=== PATIENT | female | born 1960 | race African-American/Black ===

== ENCOUNTER 2016-08-16 09:52 | Emergency (ER) | payer OTHER ==
[~2016-08-16] VITALS: Ht 160 cm; Wt 81.5 kg
[~2016-08-16 09:52] MED LIST: ADV250 IH; CARI350 PO; HYDR-3965 PO; METO50 PO; PREG25 PO; TELM20 PO; ZOLP5 PO
[2016-08-16 10:28] LABS: BASOPHILS % (AUTO) 0.3 % (0.0-2.0); EOSINOPHILS % (AUTO) 2.2 % (1.0-6.0); HEMATOCRIT 45.2 % (36-46); HEMOGLOBIN 14.3 g/dL (12.0-16.0); LYMPHOCYTES # (AUTO) 3.3 K/uL (1.0-4.8); LYMPHOCYTES % (AUTO) 38.7 % (22.0-44.0); MEAN CORPUSCULAR HEMOGLOBIN 24.8 pg (26.0-34.0); MEAN CORPUSCULAR HGB CONC 31.6 G/dL (31.0-37.0); MEAN CORPUSCULAR VOLUME 78 fL (80-100); MONOCYTES # (AUTO) 0.6 K/uL (0.1-1.0); NEUTROPHILS # (AUTO) 4.5 K/uL (1.8-7.7); NEUTROPHILS % (AUTO) 51.8 % (40.0-70.0); PLATELET COUNT (AUTO) 260 K/uL (150-450); RED BLOOD CELL COUNT(AUTO) 5.76 MIL/uL (4.00-5.20); RED CELL DISTRIBUTION WIDTH 15.1 % (11.5-14.5); WHITE BLOOD COUNT (AUTO) 8.6 K/uL (4.5-11.0)
[2016-08-16 10:31] LABS: ADD UA MICROSCOPIC NO; APPEARANCE,URINE CLEAR (CLEAR); GLUCOSE, URINE (UA) NEGATIVE (NEGATIVE); KETONES,URINE NEGATIVE (NEGATIVE); LEUKOCYTE ESTERASE ,URINE NEGATIVE (NEGATIVE); OCCULT BLOOD,URINE NEGATIVE (NEGATIVE); PROTEIN,URINE NEGATIVE (NEGATIVE)
[2016-08-16] MEDS ORDERED: MAGNESIUM CITRATE 300 ML ORAL SOLUTION PO ONE (11:45)
[2016-08-16 12:06] VITALS: BP 124/77
== END 2016-08-16 12:07 | disposition home or self-care (01) ==
LOC: EMS 09:55
DX: R10.9 Unspecified abdominal pain (principal); F17.210 Nicotine dependence, cigarettes, uncomplicated; F41.9 Anxiety disorder, unspecified; M19.90 Unspecified osteoarthritis, unspecified site; I10 Essential (primary) hypertension; K21.9 Gastro-esophageal reflux disease without esophagitis; J45.909 Unspecified asthma, uncomplicated
CPT/HCPCS: 99284

== ENCOUNTER 2017-03-13 23:11 | Emergency (ER) | payer OTHER ==
[~2017-03-13] VITALS: Ht 160 cm; Wt 86.4 kg
[2017-03-14] MEDS ORDERED: ALBUTEROL SULFATE 5 MG/ML 20 ML NEB SOLN [BULK] NEB ONE (02:30)
[2017-03-14] MEDS ORDERED: IPRATROPIUM BROMIDE 0.5 MG/2.5 ML NEB SOLUTION NEB ONE (02:30)
[2017-03-14] MEDS ORDERED: 0.9% SODIUM CHLORIDE 5 ML NEB SOLUTION NEB ONE (02:35)
[2017-03-14 03:51] VITALS: BP 146/72
== END 2017-03-14 03:54 | disposition home or self-care (01) ==
LOC: EMS 23:12
DX: J45.901 Unspecified asthma with (acute) exacerbation (principal); J11.1 Influenza due to unidentified influenza virus with other respiratory manifestations; R11.0 Nausea; K21.9 Gastro-esophageal reflux disease without esophagitis; I10 Essential (primary) hypertension; F17.210 Nicotine dependence, cigarettes, uncomplicated
CPT/HCPCS: 94644; 99285

== ENCOUNTER 2017-08-30 14:05 | Emergency (ER) | payer OTHER, MEDICAID ==
[~2017-08-30] VITALS: Ht 160 cm; Wt 90.5 kg
[~2017-08-30 14:05] MED LIST changes: -PREG25 PO; -ZOLP5 PO
[2017-08-30 15:33] VITALS: BP 138/88
== END 2017-08-30 15:33 | disposition home or self-care (01) ==
LOC: EMS 14:07
DX: M54.5 Low back pain (principal); G89.29 Other chronic pain; I10 Essential (primary) hypertension; K21.9 Gastro-esophageal reflux disease without esophagitis; J45.909 Unspecified asthma, uncomplicated; F17.210 Nicotine dependence, cigarettes, uncomplicated
CPT/HCPCS: 99283; 99406

== ENCOUNTER 2017-10-19 17:45 | Emergency (ER) | payer OTHER, MEDICAID ==
[~2017-10-19] VITALS: Ht 160 cm; Wt 90.9 kg
[2017-10-19 18:27] LABS: BASOPHILS % (AUTO) 0.6 % (0.0-2.0); EOSINOPHILS % (AUTO) 0.6 % (1.0-6.0); HEMATOCRIT 43.4 % (36-46); HEMOGLOBIN 14.2 g/dL (12.0-16.0); LYMPHOCYTES # (AUTO) 2.6 K/uL (1.0-4.8); LYMPHOCYTES % (AUTO) 32.4 % (22.0-44.0); MEAN CORPUSCULAR HEMOGLOBIN 27.2 pg (26.0-34.0); MEAN CORPUSCULAR HGB CONC 32.8 G/dL (31.0-37.0); MEAN CORPUSCULAR VOLUME 83 fL (80-100); MONOCYTES # (AUTO) 0.5 K/uL (0.1-1.0); NEUTROPHILS # (AUTO) 4.8 K/uL (1.8-7.7); NEUTROPHILS % (AUTO) 60.4 % (40.0-70.0); PLATELET COUNT (AUTO) 251 K/uL (150-450); RED BLOOD CELL COUNT(AUTO) 5.23 MIL/uL (4.00-5.20); RED CELL DISTRIBUTION WIDTH 15.4 % (11.5-14.5)
[2017-10-19 18:45] LABS: ANION GAP 9 mmol/L (8-16); CALCIUM, TOTAL 9.5 mg/dL (8.8-10.5); CARBON DIOXIDE 27 mmol/L (22-29); CHLORIDE 105 mmol/L (98-107); CREATININE 0.78 mg/dL (0.60-1.30); GLOMERULAR FILTR. RATE CALC > 60 mL/min (>60); GLUCOSE,RANDOM 114 mg/dL (70-110); POTASSIUM 3.9 mmol/L (3.5-5.1); SODIUM SERUM 141 mmol/L (136-145); UREA NITROGEN, BLOOD 18 mg/dL (7-18)
[2017-10-19 18:48] LABS: ALANINE AMINOTRANSFERASE 18 U/L (12-78); ALBUMIN 4.1 g/dL (3.4-5.0); ALKALINE PHOSPHATASE 75 U/L (46-116); ASPARTATE AMINOTRANSFERASE 11 U/L (15-37); BILIRUBIN,TOTAL 0.5 mg/dL (0.1-1.0); TOTAL PROTEIN, SERUM 7.7 g/dL (6.4-8.2)
[2017-10-19] MEDS ORDERED: ASPIRIN 81 MG CHEWABLE TABLET PO ONE (21:00)
[2017-10-19] MEDS ORDERED: ACETAMINOPHEN 500 MG TABLET PO ONE (21:00)
[2017-10-19] MEDS ORDERED: KETOROLAC TROMETHAMINE 60 MG/2 ML VIAL IM ONE (21:00)
[2017-10-19 22:01] VITALS: BP 139/81
== END 2017-10-19 22:24 | disposition home or self-care (01) ==
LOC: EMS 17:48
DX: R07.89 Other chest pain (principal); I10 Essential (primary) hypertension; J45.909 Unspecified asthma, uncomplicated; K21.9 Gastro-esophageal reflux disease without esophagitis; F41.9 Anxiety disorder, unspecified; F17.210 Nicotine dependence, cigarettes, uncomplicated
CPT/HCPCS: 93005; 99285; 99406; J1885

== ENCOUNTER 2018-05-22 09:31 | Emergency (ER) | payer OTHER ==
[~2018-05-22] VITALS: Ht 162.6 cm; Wt 86.4 kg
[~2018-05-22 09:31] MED LIST changes: -CARI350 PO
[2018-05-22] MEDS ORDERED: IPRAHFA IH (09:44)
[2018-05-22] MEDS ORDERED: FLUCONAZOLE 150 MG TABLET PO ONE (11:00)
[2018-05-22] MEDS ORDERED: PredniSONE 20 MG TABLET PO ONE (11:00)
[2018-05-22] MEDS ORDERED: IPRATROPIUM BROMIDE 0.5 MG/2.5 ML NEB SOLUTION NEB ONE (11:00)
[2018-05-22] MEDS ORDERED: ALBUTEROL SULFATE 2.5 MG/0.5 ML NEB SOLUTION NEB ONE (11:00)
[2018-05-22] MEDS ORDERED: ALBUTEROL SULFATE HFA 90 MCG/PUFF 8 GM INHALER IH ONE (12:15)
[2018-05-22 13:09] VITALS: BP 136/74
== END 2018-05-22 13:18 | disposition home or self-care (01) ==
LOC: EMS 09:33
DX: J18.0 Bronchopneumonia, unspecified organism (principal); I10 Essential (primary) hypertension; J44.9 Chronic obstructive pulmonary disease, unspecified; K21.9 Gastro-esophageal reflux disease without esophagitis; F41.9 Anxiety disorder, unspecified; F17.210 Nicotine dependence, cigarettes, uncomplicated; Z79.899 Other long term (current) drug therapy
CPT/HCPCS: 71045; 94640; 99284; 99406; J7512; J3535

== ENCOUNTER 2018-06-01 08:03 | Emergency (ER) | payer OTHER ==
[~2018-06-01] VITALS: Ht 162.6 cm; Wt 89.1 kg
[~2018-06-01 08:03] MED LIST changes: +IPRAHFA IH
[2018-06-01] MEDS ORDERED: AMLO-511 PO (08:09)
[2018-06-01 09:43] LABS: ANION GAP 7 mmol/L (8-16); BASOPHILS % (AUTO) 0.8 % (0.0-2.0); CALCIUM, TOTAL 9.6 mg/dL (8.8-10.5); CARBON DIOXIDE 30 mmol/L (22-29); CHLORIDE 103 mmol/L (98-107); CREATININE 0.74 mg/dL (0.60-1.30); EOSINOPHILS % (AUTO) 2.3 % (1.0-6.0); GLOMERULAR FILTR. RATE CALC > 60 mL/min (>60); GLUCOSE,RANDOM 106 mg/dL (70-110); HEMATOCRIT 45.1 % (36-46); HEMOGLOBIN 14.4 g/dL (12.0-16.0); LYMPHOCYTES # (AUTO) 2.3 K/uL (1.0-4.8); LYMPHOCYTES % (AUTO) 31.9 % (22.0-44.0); MEAN CORPUSCULAR VOLUME 81 fL (80-100); MONOCYTES # (AUTO) 0.6 K/uL (0.1-1.0); MONOCYTES % (AUTO) 7.6 % (2.0-9.0); NEUTROPHILS # (AUTO) 4.2 K/uL (1.8-7.7); NEUTROPHILS % (AUTO) 57.4 % (40.0-70.0); PLATELET COUNT (AUTO) 252 K/uL (150-450); POTASSIUM 4.2 mmol/L (3.5-5.1); RED BLOOD CELL COUNT(AUTO) 5.54 MIL/uL (4.00-5.20); RED CELL DISTRIBUTION WIDTH 14.5 % (11.5-14.5); SODIUM SERUM 140 mmol/L (136-145); UREA NITROGEN, BLOOD 11 mg/dL (7-18)
[2018-06-01 09:51] LABS: ALANINE AMINOTRANSFERASE 22 U/L (12-78); ALBUMIN 3.7 g/dL (3.4-5.0); ALKALINE PHOSPHATASE 70 U/L (46-116); ASPARTATE AMINOTRANSFERASE 14 U/L (15-37); BILIRUBIN,TOTAL 0.4 mg/dL (0.1-1.0); TOTAL PROTEIN, SERUM 7.2 g/dL (6.4-8.2)
[2018-06-01 10:44] VITALS: BP 147/77
== END 2018-06-01 11:32 | disposition home or self-care (01) ==
LOC: EMS 08:03
DX: J40 Bronchitis, not specified as acute or chronic (principal); K21.9 Gastro-esophageal reflux disease without esophagitis; I10 Essential (primary) hypertension; M19.90 Unspecified osteoarthritis, unspecified site; F41.9 Anxiety disorder, unspecified; F17.210 Nicotine dependence, cigarettes, uncomplicated; Z98.51 Tubal ligation status; Z90.710 Acquired absence of both cervix and uterus; Z90.12 Acquired absence of left breast and nipple
CPT/HCPCS: 93005

== ENCOUNTER 2020-09-17 08:22 | Emergency (ER) | payer OTHER ==
[~2020-09-17] VITALS: Ht 160 cm; Wt 93.2 kg
[~2020-09-17 08:22] MED LIST changes: -ADV250 IH; +AMLO-257 PO; +FLUT1DIS6 IH; -HYDR-3965 PO; +HYDR-4723 PO
[2020-09-17 08:44] VITALS: BP 141/73
== END 2020-09-17 09:53 | disposition home or self-care (01) ==
LOC: EMS 08:32
DX: H61.23 Impacted cerumen, bilateral (principal); Z90.710 Acquired absence of both cervix and uterus; Z98.51 Tubal ligation status; J45.909 Unspecified asthma, uncomplicated; I10 Essential (primary) hypertension; Z79.899 Other long term (current) drug therapy
CPT/HCPCS: 99283

== ENCOUNTER 2021-06-29 11:57 | Emergency (ER) | payer OTHER ==
[~2021-06-29] VITALS: Ht 160 cm; Wt 95.5 kg
[2021-06-29 12:18] LABS: BASOPHILS % (AUTO) 0.9 % (0.0-2.0); EOSINOPHILS % (AUTO) 1.2 % (1.0-6.0); HEMOGLOBIN 13.5 g/dL (12.0-16.0); LYMPHOCYTES # (AUTO) 3.3 K/uL (1.0-4.8); MEAN CORPUSCULAR HEMOGLOBIN 26.6 pg (26.0-34.0); MEAN CORPUSCULAR HGB CONC 32.1 G/dL (31.0-37.0); MEAN CORPUSCULAR VOLUME 83 fL (80-100); MONOCYTES # (AUTO) 0.6 K/uL (0.1-1.0); MONOCYTES % (AUTO) 7.3 % (2.0-9.0); NEUTROPHILS # (AUTO) 3.8 K/uL (1.8-7.7); NEUTROPHILS % (AUTO) 48.6 % (40.0-70.0); PLATELET COUNT (AUTO) 250 K/uL (150-450); RED BLOOD CELL COUNT(AUTO) 5.06 MIL/uL (4.00-5.20); RED CELL DISTRIBUTION WIDTH 15.2 % (11.5-14.5)
[2021-06-29 12:23] LABS: ANION GAP 5 mmol/L (8-16); CALCIUM, TOTAL 9.3 mg/dL (8.8-10.5); CARBON DIOXIDE 34 mmol/L (22-29); CHLORIDE 104 mmol/L (98-107); CREATININE 0.84 mg/dL (0.60-1.30); GLOMERULAR FILTR. RATE CALC > 60 mL/min (>60); GLUCOSE,RANDOM 119 mg/dL (70-110); POTASSIUM 4.4 mmol/L (3.5-5.1); SODIUM SERUM 143 mmol/L (136-145); UREA NITROGEN, BLOOD 17 mg/dL (7-18)
[2021-06-29 13:03] LABS: B-TYPE NATRIURETIC PEPTIDE 5 pg/mL (0-100)
[2021-06-29 13:34] VITALS: BP 126/54
[2021-06-29] MEDS ORDERED: AZIT250T9 PO (14:13)
[2021-06-29] MEDS ORDERED: BENZ-70 PO (14:13)
[2021-06-29] MEDS ORDERED: IBUP-2070 PO (14:13)
[2021-06-29] MEDS ORDERED: BENZONATATE 100 MG CAPSULE PO ONE (14:15)
[2021-06-29] MEDS ORDERED: IBUPROFEN 600 MG TABLET PO ONE (14:15)
== END 2021-06-29 14:40 | disposition home or self-care (01) ==
LOC: EMS 11:57
DX: J18.9 Pneumonia, unspecified organism (principal); F41.9 Anxiety disorder, unspecified; J45.909 Unspecified asthma, uncomplicated; J44.9 Chronic obstructive pulmonary disease, unspecified; K21.9 Gastro-esophageal reflux disease without esophagitis; I10 Essential (primary) hypertension; F17.210 Nicotine dependence, cigarettes, uncomplicated; Z90.710 Acquired absence of both cervix and uterus
CPT/HCPCS: 71045; 80048; 83880; 84484; 85025; 93005; 99285; 36415-L1; 36415-TC

== ENCOUNTER 2022-03-25 09:46 | Emergency (ER) | payer OTHER ==
[~2022-03-25] VITALS: Ht 170.2 cm; Wt 90.9 kg
[~2022-03-25 09:46] MED LIST changes: +AZIT250T9 PO; +BENZ-70 PO; +IBUP-1492 PO
[2022-03-25] MEDS ORDERED: MONT-35 PO (10:00)
[2022-03-25] MEDS ORDERED: TELMISARTAN PO (10:00)
[2022-03-25] MEDS ORDERED: METO50 PO (10:00)
[2022-03-25] MEDS ORDERED: GABA-1181 PO (10:00)
[2022-03-25] MEDS ORDERED: AMLO10TA55 PO (10:00)
[2022-03-25 13:11] VITALS: BP 133/72
[2022-03-25 13:12] LABS: BASOPHILS % (AUTO) 0.7 % (0.0-2.0); EOSINOPHILS % (AUTO) 1.4 % (1.0-6.0); HEMATOCRIT 43.8 % (36-46); HEMOGLOBIN 13.8 g/dL (12.0-16.0); LYMPHOCYTES # (AUTO) 3.3 K/uL (1.0-4.8); LYMPHOCYTES % (AUTO) 42.9 % (22.0-44.0); MEAN CORPUSCULAR HEMOGLOBIN 26.1 pg (26.0-34.0); MEAN CORPUSCULAR HGB CONC 31.4 G/dL (31.0-37.0); MEAN CORPUSCULAR VOLUME 83 fL (80-100); MONOCYTES # (AUTO) 0.5 K/uL (0.1-1.0); MONOCYTES % (AUTO) 6.2 % (2.0-9.0); NEUTROPHILS # (AUTO) 3.7 K/uL (1.8-7.7); NEUTROPHILS % (AUTO) 48.8 % (40.0-70.0); PLATELET COUNT (AUTO) 256 K/uL (150-450); RED BLOOD CELL COUNT(AUTO) 5.27 MIL/uL (4.00-5.20); RED CELL DISTRIBUTION WIDTH 14.5 % (11.5-14.5)
[2022-03-25 13:23] LABS: PROTHROMBIN TIME 11.1 SEC (9.4-11.6)
[2022-03-25 13:25] LABS: ANION GAP 7 mmol/L (8-16); CALCIUM, TOTAL 9.3 mg/dL (8.8-10.5); CARBON DIOXIDE 32 mmol/L (22-29); CHLORIDE 104 mmol/L (98-107); CREATININE 0.73 mg/dL (0.60-1.30); GLUCOSE,RANDOM 118 mg/dL (70-110); SODIUM SERUM 143 mmol/L (136-145); UREA NITROGEN, BLOOD 10 mg/dL (7-18)
[2022-03-25 13:26] LABS: GLOMERULAR FILTR. RATE CALC > 60 mL/min (>60)
[2022-03-25 13:31] LABS: ALANINE AMINOTRANSFERASE 19 U/L (12-78); ALKALINE PHOSPHATASE 73 U/L (46-116); ASPARTATE AMINOTRANSFERASE 17 U/L (15-37); BILIRUBIN,TOTAL 0.5 mg/dL (0.1-1.0); TOTAL PROTEIN, SERUM 7.6 g/dL (6.4-8.2)
[2022-03-25 13:34] LABS: B-TYPE NATRIURETIC PEPTIDE 10 pg/mL (0-100)
[2022-03-25] MEDS ORDERED: OMEP40CA21 PO (14:25)
[2022-03-25] MEDS ORDERED: IPRA3AMP24 NEB (14:25)
[2022-03-25] MEDS ORDERED: METO-391 PO (14:25)
[2022-03-25] MEDS ORDERED: FLUT1DIS26 IH (14:25)
[2022-03-25] MEDS ORDERED: IPRA4AER IH (14:25)
[2022-03-25] MEDS ORDERED: TELM20TA8 PO (14:25)
[2022-03-25] MEDS ORDERED: FLUT16H NASAL (14:25)
[2022-03-25] MEDS ORDERED: ALBU8HFA IH (14:25)
[2022-03-25] MEDS ORDERED: METH-812 PO (14:28)
[2022-03-25] MEDS ORDERED: DIPH-1080 PO (14:28)
[2022-03-25] MEDS ORDERED: IBUP-2070 PO (14:28)
[2022-03-25] MEDS ORDERED: ACET325T51 PO (14:28)
[2022-03-25] MEDS ORDERED: CYCL-448 PO (14:29)
[2022-03-25] MEDS ORDERED: KETOROLAC TROMETHAMINE 30 MG/ML VIAL IM ONE (14:30)
[2022-03-25] MEDS ORDERED: HYDROCODONE/ACETAMINOPHEN 5-325 MG TABLET PO ONE (14:30)
== END 2022-03-25 14:43 | disposition home or self-care (01) ==
LOC: EMS 09:48
DX: S16.1XXA Strain of muscle, fascia and tendon at neck level, initial encounter (principal); M25.552 Pain in left hip; M25.512 Pain in left shoulder; F41.9 Anxiety disorder, unspecified; J45.909 Unspecified asthma, uncomplicated; K59.00 Constipation, unspecified; J44.9 Chronic obstructive pulmonary disease, unspecified; I10 Essential (primary) hypertension; M19.90 Unspecified osteoarthritis, unspecified site; F17.210 Nicotine dependence, cigarettes, uncomplicated; Z90.710 Acquired absence of both cervix and uterus; Z98.51 Tubal ligation status; Z90.11 Acquired absence of right breast and nipple; Z98.890 Other specified postprocedural states; X58.XXXA Exposure to other specified factors, initial encounter; Y93.89 Activity, other specified; Y92.89 Other specified places as the place of occurrence of the external cause; Y99.8 Other external cause status
CPT/HCPCS: 99285; 71045; 80053; 83880; 84484; 85025; 85610; 85730; 36415; 72040; 73503; 93005; 96372; J1885

== ENCOUNTER 2023-05-18 01:45 | Inpatient (IN) | payer OTHER ==
[2023-05-18] VITALS (11 sets, daily range): BP systolic 129–157; BP diastolic 61–82; PULSE 71–101; RESP 17–24; TEMP 97.5–98.9; O2SAT 96–99
[~2023-05-18] VITALS: Ht 160 cm; Wt 92.7 kg
[~2023-05-18 01:45] MED LIST changes: +ACET325T51 PO; +ALBU18HF12 IH; -AMLO-257 PO; +AMLO10TA55 PO; -AZIT250T9 PO; -BENZ-70 PO; +CYCL-448 PO; +DIPH-1237 PO; +FLUT16H NASAL; +FLUT1DIS26 IH; -FLUT1DIS6 IH; +GABA-1181 PO; -HYDR-4723 PO; -IBUP-1492 PO; +IBUP-2070 PO; +IPRA3AMP24 NEB; +IPRA4AER IH; -IPRAHFA IH; +METH-812 PO; +METO-391 PO; -METO50 PO; +MONT-35 PO; +OMEP40CA21 PO; -TELM20 PO; +TELM20TA8 PO
[2023-05-18 02:32] LABS: COVID AG,FIA SOURCE NASAL SWAB
[2023-05-18] MEDS: ALBUTEROL SULFATE 2.5 MG/0.5 ML NEB SOLUTION NEB ONE ×2 (02:34→02:49)
[2023-05-18] MEDS: IPRATROPIUM BROMIDE 0.5 MG/2.5 ML NEB SOLUTION NEB ONE ×2 (02:34→02:55)
[2023-05-18] MEDS: ALBUTEROL SULFATE 2.5 MG/0.5 ML 5 ML NEB SOLUTION NEB ONE (02:54)
[2023-05-18 02:59] LABS: INFLUENZA TYPE A NEGATIVE FOR TYPE A (NEGATIVE); INFLUENZA TYPE B NEGATIVE FOR TYPE B (NEGATIVE); SARS-COV2 (COVID) ANTIGEN,FIA Negative (Negative)
[2023-05-18] MEDS: MethylPREDNISolone SOD SUCC 125 MG/2 ML VIAL IVP ONE (03:13)
[2023-05-18 03:33] LABS: BASOPHILS % (AUTO) 0.8 % (0.0-2.0); EOSINOPHILS % (AUTO) 1.5 % (1.0-6.0); HEMOGLOBIN 12.9 g/dL (12.0-16.0); LYMPHOCYTES # (AUTO) 2.4 K/uL (1.0-4.8); LYMPHOCYTES % (AUTO) 23.7 % (22.0-44.0); MEAN CORPUSCULAR HEMOGLOBIN 26.8 pg (26.0-34.0); MEAN CORPUSCULAR HGB CONC 32.3 G/dL (31.0-37.0); MEAN CORPUSCULAR VOLUME 83 fL (80-100); MONOCYTES % (AUTO) 9.5 % (2.0-9.0); NEUTROPHILS # (AUTO) 6.5 K/uL (1.8-7.7); NEUTROPHILS % (AUTO) 64.5 % (40.0-70.0); PLATELET COUNT (AUTO) 245 K/uL (150-450); RED BLOOD CELL COUNT(AUTO) 4.82 MIL/uL (4.00-5.20); RED CELL DISTRIBUTION WIDTH 15.2 % (11.5-14.5); WHITE BLOOD COUNT (AUTO) 10.1 K/uL (4.5-11.0)
[2023-05-18 03:40] LABS: ANION GAP 6 mmol/L (8-16); CALCIUM, TOTAL 9.4 mg/dL (8.8-10.5); CARBON DIOXIDE 30 mmol/L (22-29); CHLORIDE 101 mmol/L (98-107); CREATININE 0.66 mg/dL (0.60-1.30); GLOMERULAR FILTR. RATE CALC > 60 mL/min (>60); GLUCOSE,RANDOM 118 mg/dL (70-110); POTASSIUM 5.9 mmol/L (3.5-5.1); SODIUM SERUM 137 mmol/L (136-145); UREA NITROGEN, BLOOD 17 mg/dL (7-18)
[2023-05-18 03:45] LABS: TROPONIN I-HIGH SENSITIVITY 11 ng/L (<51)
[2023-05-18 03:49] LABS: B-TYPE NATRIURETIC PEPTIDE < 5 pg/mL (0-100)
[2023-05-18 04:04] LABS: ALANINE AMINOTRANSFERASE 20 U/L (12-78); ALBUMIN 3.5 g/dL (3.4-5.0); ALKALINE PHOSPHATASE 76 U/L (46-116); ASPARTATE AMINOTRANSFERASE 34 U/L (15-37); BILIRUBIN,TOTAL 0.3 mg/dL (0.1-1.0); CREATINE KINASE, TOTAL ONLY 124 U/L (26-192); TOTAL PROTEIN, SERUM 7.7 g/dL (6.4-8.2)
[2023-05-18] MEDS ORDERED: ONDANSETRON HCL 4 MG/2 ML VIAL IVP PRN (04:15)
[2023-05-18] MEDS: AZITHROMYCIN 500 MG/NS 250 ML IV SCH (04:31)
[2023-05-18] MEDS: SODIUM CHLORIDE 0.9% 1,000 ML IV SCH (04:33)
[2023-05-18] MEDS: KETOROLAC TROMETHAMINE 30 MG/ML VIAL IVP ONE (04:35)
[2023-05-18] MEDS: ACETAMINOPHEN 325 MG TABLET PO PRN (06:17)
[2023-05-18] MEDS ORDERED: INSULIN REGULAR, HUMAN 100 UNITS/ML SQ SCH (07:30)
[2023-05-18] MEDS: DEXTROSE 50%-WATER 25 GM/50 ML SYRINGE IVP ONE (07:30)
[2023-05-18] MEDS ORDERED: CYCLOBENZAPRINE HCL 10 MG TABLET PO PRN (07:30)
[2023-05-18] MEDS: METHOCARBAMOL 750 MG TABLET PO SCH (08:31)
[2023-05-18] MEDS: DOCUSATE SODIUM 100 MG CAPSULE PO SCH (08:32)
[2023-05-18] MEDS: AmLODIPine BESYLATE 10 MG TABLET PO SCH (08:32)
[2023-05-18] MEDS: GABAPENTIN 300 MG CAPSULE PO SCH ×2 (08:32→16:51)
[2023-05-18] MEDS: METOPROLOL SUCCINATE 50 MG ER TABLET PO SCH (08:32)
[2023-05-18] MEDS: HEPARIN SODIUM,PORCINE 5,000 UNITS/ML VIAL SQ SCH (08:32)
[2023-05-18] MEDS: CefTRIAXone 1 GM/DEXTROSE 50 ML IV SCH (08:36)
[2023-05-18 10:01] LABS: ANION GAP 12 mmol/L (8-16); CALCIUM, TOTAL 9.6 mg/dL (8.8-10.5); CARBON DIOXIDE 26 mmol/L (22-29); CHLORIDE 101 mmol/L (98-107); CREATININE 0.94 mg/dL (0.60-1.30); GLOMERULAR FILTR. RATE CALC > 60 mL/min (>60); GLUCOSE,RANDOM 255 mg/dL (70-110); SODIUM SERUM 139 mmol/L (136-145); UREA NITROGEN, BLOOD 17 mg/dL (7-18)
[2023-05-18] MEDS: OxyCODONE HCL/ACETAMINOPHEN 10-325 MG TABLET PO PRN (12:58)
[2023-05-18] MEDS: LORazepam 1 MG TABLET PO ONE (14:17)
[2023-05-18] MEDS ORDERED: SODIUM CHLORIDE 0.9% 100 ML ONE (15:01)
[2023-05-18] MEDS ORDERED: IOHEXOL 350 MG/ML 100 ML VIAL ONE (15:01)
[2023-05-18] MEDS ORDERED: SODIUM CHLORIDE 3% 15 ML NEB SOLUTION NEB ONE (19:54)
[2023-05-18] MEDS: ALBUTEROL SULFATE 2.5 MG/0.5 ML NEB SOLUTION NEB PRN (20:14)
[2023-05-18] MEDS: IPRATROPIUM BROMIDE 0.5 MG/2.5 ML NEB SOLUTION NEB PRN (20:14)
[2023-05-18] MEDS: DiphenhydrAMINE HCL 25 MG CAPSULE PO PRN (21:19)
[2023-05-19] VITALS (12 sets, daily range): BP systolic 126–155; BP diastolic 54–83; PULSE 71–105; RESP 18–24; TEMP 97.8–98.2; O2SAT 96–99
[2023-05-19] MEDS: MethylPREDNISolone SOD SUCC 125 MG/2 ML VIAL IVP SCH ×2 (04:19→17:55)
[2023-05-19] MEDS: IPRATROPIUM BROMIDE 0.5 MG/2.5 ML NEB SOLUTION NEB PRN (12:56)
[2023-05-19] MEDS: ALBUTEROL SULFATE 2.5 MG/0.5 ML NEB SOLUTION NEB PRN (12:57)
[2023-05-19] MEDS: FLUTICASONE PROPIONATE 50 MCG/SPRAY 16 GM NASAL SPRAY NASAL SCH (15:02)
[2023-05-19] MEDS: BENZONATATE 100 MG CAPSULE PO SCH (15:02)
[2023-05-19] MEDS: GuaiFENesin/D-METHORPHAN [SUGAR-FREE] 200-20MG/10 ML SYRUP UDCUP PO PRN (15:03)
[2023-05-19] MEDS: ALBUTEROL SULFATE 2.5 MG/0.5 ML NEB SOLUTION NEB SCH (15:46)
[2023-05-19] MEDS: IPRATROPIUM BROMIDE 0.5 MG/2.5 ML NEB SOLUTION NEB SCH (15:46)
[2023-05-19] MEDS: MONTELUKAST SODIUM 10 MG TABLET PO SCH (20:11)
[2023-05-19] MEDS: GuaiFENesin SR 600 MG ER TABLET PO SCH (20:11)
[2023-05-20] VITALS (16 sets, daily range): BP systolic 144–165; BP diastolic 67–77; PULSE 68–99; RESP 19–20; TEMP 97.6–98.2; O2SAT 92–100
[2023-05-20] MEDS: TELMISARTAN 20 MG TABLET PO SCH (08:06)
[2023-05-21] VITALS (13 sets, daily range): BP systolic 147–163; BP diastolic 78–105; PULSE 72–86; RESP 16–20; TEMP 98.1–98.5; O2SAT 94–99
[2023-05-21 02:36] LABS: GLUCOMETER DEV NAME(LOC) 5N.2C; GLUCOSE,POINT OF CARE 277 MG/DL (70-110)
[2023-05-21] MEDS ORDERED: DEXTROSE 50%-WATER 25 GM/50 ML SYRINGE IVP PRN (12:30)
[2023-05-21] MEDS: INSULIN LISPRO 100 UNITS/ML SQ PRN (17:14)
[2023-05-21 17:46] LABS: GLUCOMETER DEV NAME(LOC) 6N.2B; GLUCOSE,POINT OF CARE 159 MG/DL (70-110)
[2023-05-22] VITALS (11 sets, daily range): BP systolic 143–156; BP diastolic 72–76; PULSE 63–85; RESP 16–20; TEMP 97.7–98.6; O2SAT 95–99
[2023-05-22] MEDS: MethylPREDNISolone SOD SUCC 40 MG/ML VIAL IVP SCH (00:12)
[2023-05-22 07:01] LABS: GLUCOMETER DEV NAME(LOC) 6S.2; GLUCOSE,POINT OF CARE 200 MG/DL (70-110)
[2023-05-22 07:02] LABS: GLUCOMETER DEV NAME(LOC) 6S.2; GLUCOSE,POINT OF CARE 141 MG/DL (70-110)
[2023-05-22] MEDS: TELMISARTAN 20 MG TABLET PO SCH (08:17)
[2023-05-22 18:01] LABS: GLUCOMETER DEV NAME(LOC) 6S.1C; GLUCOSE,POINT OF CARE 93 MG/DL (70-110)
[2023-05-22] MEDS ORDERED: IPRA3AMP24 IH (18:07)
[2023-05-22] MEDS ORDERED: GUAIFDM PO (18:07)
[2023-05-22] MEDS ORDERED: HYDR25TA84 PO (18:07)
[2023-05-22] MEDS ORDERED: BENZ100C68 PO (18:07)
[2023-05-22] MEDS ORDERED: PRED10TA3 PO (18:07)
[2023-05-22] MEDS ORDERED: DOXY100C5 PO (18:07)
[2023-05-22] MEDS ORDERED: GUAIF600 PO (18:07)
[2023-05-22] MEDS ORDERED: TELM20 PO (18:07)
[2023-05-22] MEDS: PredniSONE 20 MG TABLET PO ONE (18:32)
[2023-05-22 20:16] LABS: GLUCOMETER DEV NAME(LOC) 4E.2; GLUCOSE,POINT OF CARE 139 MG/DL (70-110)
[2023-05-23 00:03] VITALS: PULSE 80; RESP 18; O2SAT 94
[2023-05-23 00:15] VITALS: PULSE 71; RESP 18; O2SAT 99
[2023-05-23 05:13] VITALS: BP 157/73; PULSE 74; RESP 18; TEMP 97.5
[2023-05-23 06:54] VITALS: PULSE 68; RESP 18; O2SAT 96
[2023-05-23 07:09] VITALS: PULSE 69; RESP 18; O2SAT 100
[2023-05-23 07:33] VITALS: BP 137/73; PULSE 69; RESP 20; TEMP 98.5
[2023-05-23 08:11] LABS: GLUCOMETER DEV NAME(LOC) 6N.2B; GLUCOSE,POINT OF CARE 154 MG/DL (70-110)
[2023-05-23 08:16] LABS: GLUCOMETER DEV NAME(LOC) 6N.2B; GLUCOSE,POINT OF CARE 199 MG/DL (70-110)
[2023-05-23] MEDS: PredniSONE 20 MG TABLET PO SCH (08:22)
== END 2023-05-23 09:49 | disposition home or self-care (01) | DRG 189 ==
LOC: EMS 01:48 → 5S 05:57 → 6N 05-21 10:47
PROVIDERS: ADMIT Internal Medicine; ATTEND Hospitalist
DX: J96.01 Acute respiratory failure with hypoxia (principal); J44.1 Chronic obstructive pulmonary disease with (acute) exacerbation; G89.29 Other chronic pain; M54.9 Dorsalgia, unspecified; I10 Essential (primary) hypertension; F41.9 Anxiety disorder, unspecified; K21.9 Gastro-esophageal reflux disease without esophagitis; F17.210 Nicotine dependence, cigarettes, uncomplicated; Z20.822 Contact with and (suspected) exposure to COVID-19; Z79.899 Other long term (current) drug therapy; Z90.710 Acquired absence of both cervix and uterus; Z98.891 History of uterine scar from previous surgery; Z98.51 Tubal ligation status; Z90.12 Acquired absence of left breast and nipple; Z88.0 Allergy status to penicillin
CPT/HCPCS: 71045; 71275; 80048; 80053; 82550; 82962; 83036; 83880; 84484; 85025; 85730; 87040; 87070; 87804; 93005; 94640; 94644; 99285; J0456; J0696; J1644; J1885; J2920; J2930; J7030; J7050; Q9967; 36415-L1; 36415-TC; J7613

== ENCOUNTER 2024-05-23 22:10 | Emergency (ER) | payer OTHER ==
[~2024-05-23] VITALS: Ht 160 cm; Wt 93.0 kg
[~2024-05-23 22:10] MED LIST changes: +ACET-3862 PO; -ACET325T51 PO; +BENZ100C68 PO; +DOXY100C5 PO; +FLUT1BLS7 IH; -FLUT1DIS26 IH; +GUAIF600 PO; +GUAIFDM PO; +HYDR25TA84 PO; +IPRA3AMP24 IH; +PRED10TA3 PO; +TELM20 PO; -TELM20TA8 PO
[2024-05-23 22:22] VITALS: TEMP 98.3
[2024-05-23] MEDS: PredniSONE 20 MG TABLET PO ONE (22:58)
[2024-05-23] MEDS: FAMOTIDINE 20 MG TABLET PO ONE (22:58)
[2024-05-24 00:35] VITALS: BP 133/69; PULSE 71; RESP 18; O2SAT 96
== END 2024-05-24 00:42 | disposition home or self-care (01) ==
LOC: EMS 22:32
DX: T78.3XXA Angioneurotic edema, initial encounter (principal); R09.81 Nasal congestion; J44.1 Chronic obstructive pulmonary disease with (acute) exacerbation; I10 Essential (primary) hypertension; F17.210 Nicotine dependence, cigarettes, uncomplicated; Z88.0 Allergy status to penicillin; Z88.1 Allergy status to other antibiotic agents; Z90.12 Acquired absence of left breast and nipple; Z90.710 Acquired absence of both cervix and uterus; Z79.1 Long term (current) use of non-steroidal anti-inflammatories (NSAID); Z79.51 Long term (current) use of inhaled steroids; Z79.52 Long term (current) use of systemic steroids; Z79.899 Other long term (current) drug therapy; X58.XXXA Exposure to other specified factors, initial encounter
CPT/HCPCS: 99283; J7512

== ENCOUNTER 2024-12-07 17:00 | Emergency (ER) | payer OTHER ==
[~2024-12-07] VITALS: Ht 160 cm; Wt 75.0 kg
[~2024-12-07 17:00] MED LIST changes: -IBUP-2070 PO; +IBUP600 PO
[2024-12-07 17:18] LABS: COVID AG,FIA SOURCE NASAL SWAB
[2024-12-07 17:45] LABS: INFLUENZA TYPE A NEGATIVE FOR TYPE A (NEGATIVE); INFLUENZA TYPE B NEGATIVE FOR TYPE B (NEGATIVE)
[2024-12-07 17:55] LABS: SARS-COV2 (COVID) ANTIGEN,FIA Negative (Negative)
[2024-12-07] MEDS: SODIUM CHLORIDE 0.9% 1,000 ML IV ONE (23:01)
[2024-12-07 23:04] LABS: PLATELET COUNT (AUTO) 279 K/uL (150-450); RED BLOOD CELL COUNT(AUTO) 5.01 MIL/uL (4.00-5.20); RED CELL DISTRIBUTION WIDTH 15.3 % (11.5-14.5); WHITE BLOOD COUNT (AUTO) 12.6 K/uL (4.5-11.0)
[2024-12-07 23:11] LABS: CALCIUM, TOTAL 9.7 mg/dL (8.8-10.5); CREATININE 0.53 mg/dL (0.60-1.30); GLOMERULAR FILTR. RATE CALC > 60 mL/min (>60); GLUCOSE,RANDOM 102 mg/dL (70-110); SODIUM SERUM 141 mmol/L (136-145); UREA NITROGEN, BLOOD 16 mg/dL (7-18)
[2024-12-07 23:19] LABS: ASPARTATE AMINOTRANSFERASE 19.0 U/L (15-37); TOTAL PROTEIN, SERUM 7.7 g/dL (6.4-8.2)
[2024-12-08] MEDS ORDERED: ONDA-104 PO (00:34)
[2024-12-08 00:39] VITALS: BP 140/69; PULSE 80; RESP 16; TEMP 98.9; O2SAT 98
[2024-12-08] MEDS: KETOROLAC TROMETHAMINE 30 MG/ML VIAL IVP ONE (01:14)
== END 2024-12-08 01:20 | disposition home or self-care (01) ==
LOC: EMS 17:00
DX: R10.10 Upper abdominal pain, unspecified (principal); R11.2 Nausea with vomiting, unspecified; I10 Essential (primary) hypertension; J44.89 Other specified chronic obstructive pulmonary disease; M19.90 Unspecified osteoarthritis, unspecified site; K21.9 Gastro-esophageal reflux disease without esophagitis; F17.210 Nicotine dependence, cigarettes, uncomplicated; Z79.1 Long term (current) use of non-steroidal anti-inflammatories (NSAID); Z90.710 Acquired absence of both cervix and uterus; Z88.0 Allergy status to penicillin; Z88.1 Allergy status to other antibiotic agents; Z90.12 Acquired absence of left breast and nipple; Z79.51 Long term (current) use of inhaled steroids; Z79.52 Long term (current) use of systemic steroids; Z79.899 Other long term (current) drug therapy; Z20.822 Contact with and (suspected) exposure to COVID-19
CPT/HCPCS: 99284; 96361; 87426; 80048; 80076; 83690; 85025; 87804; 36415; 93005; 96374; J7030; J1885